=== PATIENT | male | born 1950 | race Two or more races ===

== ENCOUNTER 2016-07-10 07:21 | Emergency (ER) | payer BC ==
[2016-07-10 08:38] LABS: Hematocrit 45 % (42-52); Hemoglobin 15.2 g/dl (14.0-18.0); Mean Corpuscular HGB Conc 34 g/dl (31-36); Mean Corpuscular Hemoglobin 30 pg (27-31); Mean Corpuscular Volume 89 fL (80-94); Mean Platelet Volume 8 um3 (7.4-10.4); Red Blood Count 5.02 10^6/ul (4.0-5.4); Red Cell Distribution Width 13 % (10.5-15); White Blood Count 8.6 10^3/ul (3.5-10.8)
--- NOTE | 2016-07-10 08:38 | RAD ---
HISTORY: Shortness of breath, status post neck surgery COMPARISONS: May 23, 2016 VIEWS: 2: Frontal dual-energy and lateral views of the chest. FINDINGS: CARDIOMEDIASTINAL SILHOUETTE: The cardiomediastinal silhouette is normal. SARAHI: The sarahi are normal. PLEURA: The costophrenic angles are sharp. No pleural abnormalities are noted. LUNG PARENCHYMA: There is hyperinflation with flattening of the diaphragm and expansion of the AP diameter of the chest. ABDOMEN: The upper abdomen is clear. There is no subphrenic gas. BONES AND SOFT TISSUES: The patient is status post anterior cervical fusion OTHER: None. IMPRESSION: HYPERINFLATION, CONSISTENT WITH COPD. NO ACTIVE CARDIOPULMONARY DISEASE.
[2016-07-10] MEDS ORDERED: Albuterol/Ipratropium NEB.SOL* Albuterol 2.5 MG/Ipratropium 0.5 MG 3 ML INH ONE (08:58)
[2016-07-10 09:32] LABS: Albumin 4.2 g/dL (3.2-5.2); BUN/Creatinine Ratio 26.4 (8-20); C Reactive Protein 21.38 mg/L (< 5.00); Calcium 9.4 mg/dL (8.6-10.3); EGFR African American 139.6 (>60); EGFR Non-African American 108.6 (>60); Globulin 3.1 g/dL (2-4); Magnesium 1.9 mg/dL (1.9-2.7); Potassium 4.3 mmol/L (3.5-5.0); Total Bilirubin 1.1 mg/dL (0.2-1.0); Total Protein 7.3 g/dL (6.4-8.9)
[2016-07-10 09:46] LABS: TSH (Thyroid Stimulating Horm) 1.97 mcIU/mL (0.34-5.60)
[2016-07-10] MEDS ORDERED: NS 0.9% 1000 ML* 1,000 ML IV ONE (09:50)
[2016-07-10] MEDS ORDERED: Iohexol 350* (CONTRAST) 500 ML MDV IV ONE (10:31)
--- NOTE | 2016-07-10 10:49 | RAD ---
HISTORY: Shortness of breath, status post neck surgery COMPARISONS: None TECHNIQUE: Multiple contiguous axial CT scans were obtained of the neck after the administration of nonionic intravenous contrast, with coronal and sagittal multiplanar reformations. FINDINGS: BRAIN AND ORBITS: The visualized brain and orbits are normal. PARANASAL SINUSES: The visualized paranasal sinuses are clear. SALIVARY GLANDS: The parotid glands, submandibular glands, sublingual glands are normal. NASAL CAVITY/NASOPHARYNX: The nasal cavity and nasopharynx are normal. ORAL CAVITY/OROPHARYNX: There is posterior pharyngeal and prevertebral soft tissue edema. There is effacement of the airway at the level of the oropharynx extending into the supraglottic larynx. LARYNGEAL APPARATUS/HYPOPHARYNX: As noted above, there is effacement of the airway at the level of the supraglottic larynx. There is prevertebral edema with fluid tracking along the fascia without loculated fluid collection. UPPER AIRWAY/UPPER ESOPHAGUS: The visualized upper airway and esophagus are normal. LUNG APICES: The lung apices are clear. THYROID GLAND: The thyroid gland is normal. LYMPH NODES: There is no lymphadenopathy by size criteria. VASCULATURE: The vasculature is unremarkable. BONES AND SOFT TISSUES: The patient is status post anterior cervical fusion from C4 through C7. OTHER: None. IMPRESSION: THERE IS PREVERTEBRAL AND POSTERIOR PHARYNGEAL EDEMA, WITH FLUID TRACKING ALONG THE DEEP FASCIA OF THE NECK, RESULTING IN EFFACEMENT OF THE AIRWAY EXTENDING FROM THE LEVEL OF THE INFERIOR OROPHARYNX INTO THE SUPRAGLOTTIC LARYNX. THIS IS LIKELY POSTSURGICAL SECONDARY TO THE HISTORY OF RECENT ANTERIOR CERVICAL FUSION. WHILE THIS MAY BE DYNAMIC, IN THE CORRECT CLINICAL SETTING THIS MAY INDICATE SOME DEGREE OF AIRWAY OBSTRUCTION. PRELIMINARY FINDINGS WERE DISCUSSED WITH DR. SNIDER IN THE EMERGENCY DEPARTMENT AT APPROXIMATELY 10:45 AM ON JULY 10, 2016.
--- NOTE | 2016-07-10 10:52 | RAD ---
HISTORY: Shortness of breath, positive d-dimer COMPARISONS: July 11, 2014 July 10, 2016 TECHNIQUE: Multiple contiguous axial CT scans of the chest were obtained after the administration of nonionic intravenous contrast, timed to the pulmonary arterial phase of contrast enhancement.. Coronal and sagittal multiplanar reformations are also submitted for review. FINDINGS: NECK AND THYROID: As noted on the comparison CT, there is edema of the lower neck with fluid tracking along the deep fascia. CHEST WALL: There is no lower cervical, axillary, or supraclavicular lymphadenopathy by size criteria. HEART AND PERICARDIUM: The heart is unremarkable. AORTA AND PULMONARY VASCULATURE: There is no pulmonary arterial filling defect to suggest pulmonary embolism. There is no linear filling defect within the aorta to suggest aortic dissection. MEDIASTINUM: There is no mediastinal lymphadenopathy by size criteria. SARAHI: There is no hilar lymphadenopathy by size criteria. AIRWAY AND ESOPHAGUS: The airway is unremarkable, without endobronchial filling defect. The esophagus is grossly normal. LUNG PARENCHYMA: The lungs are clear. PLEURA: No pleural abnormalities are noted. UPPER ABDOMEN: The upper abdomen is unremarkable. BONES AND SOFT TISSUES: Degenerative changes are noted of the spine. The patient is status post anterior cervical fusion OTHER: None. IMPRESSION: 1. NO PULMONARY ARTERIAL FILLING DEFECT TO SUGGEST PULMONARY EMBOLISM. 2. AGAIN NOTED IS EDEMA OF THE LOWER NECK DESCRIBED ON THE CT OF THE NECK REPORT PERFORMED ON THE SAME DAY.
--- NOTE | 2016-07-10 12:00 | ED ---
Moira Cowart Anna, scribed for Tulio Snider MD on 07/10/16 at 0734 . Shortness of Breath - HPI Summary HPI Summary: Patient is a 66 y/o male coming to [facility] presenting with SOB that began last night. The SOB began as a sticky feeling in his throat. He feels as though he has secretions in his throat and a similar feeling in his lungs. He tries to move the secretions by swallowing and clearing his throat, but this does not alleviate his symptoms. He denies fever. The patient had neck fusion surgery four days ago at [facility] with Dr. Gamez. He was in the hospital for two days and was discharged two days ago. He spoke to his surgeon in [place] this morning, who recommended that he be seen in the ED. He denies a history of asthma or COPD. He is not able to recline for one week following his surgery, so he has stayed upright. He does not take any blood thinners. - History of Current Complaint Chief Complaint: EDShortnessOfBreath Hx Obtained From: Patient Onset/Duration: Lasting Hours, Still Present Current Severity: Moderate - Allergy/Home Medications Allergies/Adverse Reactions: Allergies Allergy/AdvReac Type Severity Reaction Status Date / Time No Known Allergies Allergy Verified 01/09/16 13:29 PMH/Surg Hx/FS Hx/Imm Hx Endocrine/Hematology History: Denies: Hx Diabetes, Hx Thyroid Disease Cardiovascular History: Denies: Hx Hypertension, Hx Pacemaker/ICD Respiratory History: Denies: Hx Asthma, Hx Chronic Obstructive Pulmonary Disease (COPD) GI History: Denies: Hx Ulcer History: Denies: Hx Renal Disease Musculoskeletal History: Reports: Hx Rheumatoid Arthritis - ARTHRITIS, Hx Scoliosis Denies: Hx Osteoporosis Sensory History: Denies: Hx Hearing Aid Neurological History: Denies: Hx Headaches, Other Neuro Impairments/Disorders Psychiatric History: Reports: Other Psychiatric Issues/Disorders - CLAUSTRAPHOBIA Denies: Hx Panic Disorder - Surgical History Surgery Procedure, Year, and Place: RIGHT HIP REPLACEMENT 2010-; CHOLECYSTECTOMY 2014; NECK FUSION SURGERY JUNE 2016- Infectious Disease History: No Infectious Disease History: Reports: History Other Infectious Disease - [facility] Denies: Hx Hepatitis, Hx Human Immunodeficiency Virus (HIV), Traveled Outside the [place] in Last 30 Days - Family History Known Family History: Negative: Blood Disorder - Social History Alcohol Use: Rare Substance Use Type: Reports: None Hx Tobacco Use: Yes Review of Systems Negative: Fever Positive: Shortness Of Breath All Other Systems Reviewed And Are Negative: Yes Physical Exam Triage Information Reviewed: Yes Vital Signs On Initial Exam: Initial Vitals Temp Pulse Resp BP Pulse Ox 97.8 F 76 14 160/92 99 07/10/16 07:26 07/10/16 07:26 07/10/16 07:26 07/10/16 07:26 07/10/16 07:26 Vital Signs Reviewed: Yes Appearance: Positive: Well-Appearing, No Pain Distress Skin: Positive: Warm, Skin Color Reflects Adequate Perfusion, Dry Head/Face: Positive: Normal Head/Face Inspection Eyes: Positive: EOMI, YEMI ENT: Positive: Muffled/hoarse voice - Voice slightly hoarse Neck: Positive: Supple, Nontender Respiratory/Lung Sounds: Positive: Clear to Auscultation - Bilaterally, Breath Sounds Present, Other - Patient is clearing secretions. No acute respiratory distress. Cardiovascular: Positive: RRR Abdomen Description: Positive: Nontender, Soft Bowel Sounds: Positive: Present Musculoskeletal: Positive: Normal, Strength/ROM Intact Neurological: Positive: Normal, Sensory/Motor Intact, Alert, Oriented to Person Place, Time Psychiatric: Positive: Affect/Mood Appropriate Diagnostics - Vital Signs Vital Signs Temp Pulse Resp BP Pulse Ox 07/10/16 07:28 97.8 F 78 15 160/92 100 07/10/16 07:26 97.8 F 76 14 160/92 99 - Laboratory Lab Results: Lab Results 07/10/16 07/10/16 07/10/16 Range/Units 08:20 08:20 08:20 WBC 8.6 (3.5-10.8) 10^3/ul RBC 5.02 (4.0-5.4) 10^6/ul Hgb 15.2 (14.0-18.0) g/dl Hct 45 (42-52) % MCV 89 (80-94) fL MCH 30 (27-31) pg MCHC 34 (31-36) g/dl RDW 13 (10.5-15) % Plt Count 198 (150-450) 10^3/ul MPV 8 (7.4-10.4) um3 Neut % (Auto) 67.7 (38-83) % Lymph % (Auto) 19.7 L (25-47) % [place] % (Auto) 10.8 H (1-9) % Eos % (Auto) 1.4 (0-6) % Baso % (Auto) 0.4 (0-2) % Absolute Neuts (auto) 5.8 (1.5-7.7) 10^3/ul Absolute Lymphs (auto) 1.7 (1.0-4.8) 10^3/ul Absolute Monos (auto) 0.9 H (0-0.8) 10^3/ul Absolute Eos (auto) 0.1 (0-0.6) 10^3/ul Absolute Basos (auto) 0 (0-0.2) 10^3/ul Absolute Nucleated RBC 0.01 10^3/ul Nucleated RBC % 0.1 INR (Anticoag Therapy) 0.94 (0.89-1.11) APTT 29.4 (26.0-36.3) seconds D-Dimer, Quantitative 316 H (Less Than 230) ng/mL Sodium 127 L (133-145) mmol/L Potassium 4.3 (3.5-5.0) mmol/L Chloride 92 L (101-111) mmol/L Carbon Dioxide 26 (22-32) mmol/L Anion Gap 9 (2-11) mmol/L BUN 19 (6-24) mg/dL Creatinine 0.72 (0.67-1.17) mg/dL Est GFR ( Amer) 139.6 (>60) Est GFR (Non-Af Amer) 108.6 (>60) BUN/Creatinine Ratio 26.4 H (8-20) Glucose 108 H (70-100) mg/dL Lactic Acid (0.5-2.0) mmol/L Calcium 9.4 (8.6-10.3) mg/dL Magnesium 1.9 (1.9-2.7) mg/dL Total Bilirubin 1.10 H (0.2-1.0) mg/dL AST 37 (13-39) U/L ALT 49 (7-52) U/L Alkaline Phosphatase 52 (34-104) U/L Total Creatine Kinase 329 H (10-223) U/L CK-MB (CK-2) 5.7 (0.6-6.3) ng/mL Troponin I 0.00 (<0.04) ng/mL C-Reactive Protein 21.38 H (< 5.00) mg/L B-Natriuretic Peptide ( - 100) pg/mL Total Protein 7.3 (6.4-8.9) g/dL Albumin 4.2 (3.2-5.2) g/dL Globulin 3.1 (2-4) g/dL Albumin/Globulin Ratio 1.4 (1-3) TSH 1.97 (0.34-5.60) mcIU/mL 07/10/16 07/10/16 Range/Units 08:20 08:20 WBC (3.5-10.8) 10^3/ul RBC (4.0-5.4) 10^6/ul Hgb (14.0-18.0) g/dl Hct (42-52) % MCV (80-94) fL MCH (27-31) pg MCHC (31-36) g/dl RDW (10.5-15) % Plt Count (150-450) 10^3/ul MPV (7.4-10.4) um3 Neut % (Auto) (38-83) % Lymph % (Auto) (25-47) % [place] % (Auto) (1-9) % Eos % (Auto) (0-6) % Baso % (Auto) (0-2) % Absolute Neuts (auto) (1.5-7.7) 10^3/ul Absolute Lymphs (auto) (1.0-4.8) 10^3/ul Absolute Monos (auto) (0-0.8) 10^3/ul Absolute Eos (auto) (0-0.6) 10^3/ul Absolute Basos (auto) (0-0.2) 10^3/ul Absolute Nucleated RBC 10^3/ul Nucleated RBC % INR (Anticoag Therapy) (0.89-1.11) APTT (26.0-36.3) seconds D-Dimer, Quantitative (Less Than 230) ng/mL Sodium (133-145) mmol/L Potassium (3.5-5.0) mmol/L Chloride (101-111) mmol/L Carbon Dioxide (22-32) mmol/L Anion Gap (2-11) mmol/L BUN (6-24) mg/dL Creatinine (0.67-1.17) mg/dL Est GFR ( Amer) (>60) Est GFR (Non-Af Amer) (>60) BUN/Creatinine Ratio (8-20) Glucose (70-100) mg/dL Lactic Acid 0.8 (0.5-2.0) mmol/L Calcium (8.6-10.3) mg/dL Magnesium (1.9-2.7) mg/dL Total Bilirubin (0.2-1.0) mg/dL AST (13-39) U/L ALT (7-52) U/L Alkaline Phosphatase (34-104) U/L Total Creatine Kinase (10-223) U/L CK-MB (CK-2) (0.6-6.3) ng/mL Troponin I (<0.04) ng/mL C-Reactive Protein (< 5.00) mg/L B-Natriuretic Peptide 28 ( - 100) pg/mL Total Protein (6.4-8.9) g/dL Albumin (3.2-5.2) g/dL Globulin (2-4) g/dL Albumin/Globulin Ratio (1-3) TSH (0.34-5.60) mcIU/mL Result Diagrams: 07/10/16 08:20 07/10/16 08:20 Lab Statement: Any lab studies that have been ordered have been reviewed, and results considered in the medical decision making process. - Radiology CXR Xray Interpretation: Positive (See Comments) Radiology Interpretation Completed By: Radiologist - IMPRESSION: HYPERINFLATION , CONSISTENT WITH COPD. NO ACTIVE CARDIOPULMONARY DISEASE. - CT Soft tissue Neck CT CT Interpretation: Positive (See Comments) CT Interpretation Completed By: Radiologist - IMPRESSION: THERE IS PREVERTEBRAL AND POSTERIOR PHARYNGEAL EDEMA, WITH FLUID TRACKING ALONG THE DEEP FASCIA OF THE NECK, RESULTING IN EFFACEMENT OF THE AIRWAY EXTENDING FROM THE LEVEL OF THE INFERIOR OROPHARYNX INTO THE SUPRAGLOTTIC LARYNX. THIS IS LIKELY POSTSURGICAL SECONDARY TO THE HISTORY OF RECENT ANTERIOR CERVICAL FUSION. WHILE THIS MAY BE DYNAMIC, IN THE CORRECT CLINICAL SETTING THIS MAY INDICATE SOME DEGREE OF AIRWAY OBSTRUCTION. PRELIMINARY FINDINGS WERE DISCUSSED WITH DR. SNIDER IN THE EMERGENCY DEPARTMENT AT APPROXIMATELY 10:45 AM ON JULY 10, 2016. Chest/thorax CTA CT Interpretation: Positive (See Comments) CT Interpretation Completed By: Radiologist - IMPRESSION: 1. NO PULMONARY ARTERIAL FILLING DEFECT TO SUGGEST PULMONARY EMBOLISM. 2. AGAIN NOTED IS EDEMA OF THE LOWER NECK DESCRIBED ON THE CT OF THE NECK REPORT PERFORMED ON THE SAME DAY. Re-Evaluation - Re-Evaluation First Eval Re-Evaluation Time: 09:43 Change: Unchanged Comment: Patient reports his condition was not improved by breathing treatment. Discussed results of labs and CXR with patient and family. Patient and family agree with CT scan. Second Eval Re-Evaluation Time: 11:26 Change: Unchanged Comment: Discussed results of CT and plan of care. Will consult with Dr. Gamez. Third Eval Re-Evaluation Time: 11:41 Change: Unchanged Comment: Discussed conversation with Dr. David and current options for patient. Patient would like to be discharged home at this time and will follow up with Dr. Gamez tomorrow. Advised patient to return immediately with changing or worsening symptoms. Course/Dx - Course Course Of Treatment: NO CRITICAL CARE TIME. Assessment/Plan: NO IMPROVEMENT WITH DUONEB. PATIENT ABLE TO SWALLOW/HANDLE SECRETIONS/BREATH WELL WHILE UPRIGHT. DISCUSSED RESULTS WITH DR ABDULLAHI, ORTHOPEDICS, AND WITH PATIENT/. AT THIS TIME, PATIENT WILL BE DISCHARGED HOME STABLE. HE WILL CALL DR LEROY TOMORROW FOR F/U; HE WILL RETURN IMMEDIATELY TO THE EMERGENCY DEPARTMENT IF HE HAS ANY CONCERNS WITH DIFFICULTY SWALLOWING/BREATHING OR ANY CONCERNS. - Diagnoses Provider Diagnoses: Neck swelling, Dyspnea - Physician Notifications Discussed Care of Patient With: Dr. David ([facility]) at 0830. Discussed tests and plan of care for patient. Ensure no evidence of PE. Check to ensure patient is handling secretions and breathing okay. If any problems, send to [facility]. Dr. David ([facility]) at [phone]. Because patient is able to eat and drink normally and is not SOB when upright, patient can be discharged home if he feels safe to do so. If he is concerned, Dr. David will accept the patient at [facility]. Discharge - Discharge Plan Condition: Stable Disposition: HOME Referrals: Madhu Rowland MD [Primary Care Provider] - Vera WYNNE,Krishan Marquez [Medical Doctor] - Additional Instructions: FOLLOW UP WITH YOUR DOCTOR FOR YOUR NECK SWELLING. CALL DR GAMEZ TOMORROW, 4/17/17, IN THE MORNING. RETURN TO THE EMERGENCY DEPARTMENT FOR ANY WORSENING OF YOUR CONDITION; DIFFICULTY SWALLOWING, SHORTNESS OF BREATH OR QUESTIONS OR CONCERNS. The documentation as recorded by the Moira varma Anna accurately reflects the service I personally performed and the decisions made by me, Tulio Snider MD.
[2016-07-10 12:23] VITALS: BP 146/84
== END 2016-07-10 12:22 | disposition home or self-care (01) ==
LOC: ED 07:21
DX: R22.1 Localized swelling, mass and lump, neck (principal); R06.00 Dyspnea, unspecified; Z87.891 Personal history of nicotine dependence; M06.9 Rheumatoid arthritis, unspecified
CPT/HCPCS: 36415; 70491; 71020; 71275; 80053; 82550; 82553; 83605; 83735; 83880; 84443; 84484; 85025; 85379; 85610; 85730; 86140; 94640; 96360; 99283; A9270-GY; Q9967

== ENCOUNTER 2017-09-11 12:15 | Emergency (ER) | payer BC ==
[2017-09-11 12:22] VITALS: BP 142/93
--- NOTE | 2017-09-11 12:52 | RAD ---
INDICATION: Right wrist pain COMPARISON: None TECHNIQUE: AP, lateral, and oblique views were obtained. FINDINGS: There is a longitudinally oriented fracture of the distal radius with intra-articular extension. This represents a comminuted fracture. The fracture is essentially nondisplaced. There are no other acute fractures. There is an old, healed, fifth metacarpal fracture. There is advanced osteoarthritis about the first carpometacarpal articulation. There is diffuse soft tissue swelling about the wrist. There are vascular calcifications. IMPRESSION: NONDISPLACED, INTRA-ARTICULAR FRACTURE DISTAL RADIUS
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
== END 2017-09-11 13:41 | disposition home or self-care (01) ==
LOC: UCEAST 12:15
DX: S52.571A Other intraarticular fracture of lower end of right radius, initial encounter for closed fracture (principal); S50.811A Abrasion of right forearm, initial encounter; V18.0XXA Pedal cycle driver injured in noncollision transport accident in nontraffic accident, initial encounter; Y93.55 Activity, bike riding; Y92.9 Unspecified place or not applicable; Z96.641 Presence of right artificial hip joint
CPT/HCPCS: 99212; G0463